=== PATIENT | male | born 1990 | race Caucasian/White ===

== ENCOUNTER 2016-09-21 23:02 | Emergency (ER) | payer OTHER ==
[2016-09-22] MEDS ORDERED: diphenhydrAMINE 50 MG/ML 1 ML VIAL IVP STA (00:16)
[2016-09-22] MEDS ORDERED: SODIUM CHLORIDE 0.9% 1,000 ML IV STA (00:16)
[2016-09-22] MEDS ORDERED: METOCLOPRAMIDE 5 MG/ML 2 ML VIAL IVP STA (00:16)
[2016-09-22] MEDS ORDERED: KETOROLAC 30 MG/ML 1 ML VIAL IVP STA (00:16)
--- NOTE | 2016-09-22 00:17 | ED ---
Headache HPI - General Chief Complaint: Headache Stated Complaint: migraine Time Seen by Provider: 09/21/16 23:59 Source: RN notes reviewed, old records reviewed Mode of arrival: ambulatory Limitations: no limitations - History of Present Illness Initial Comments: This is a 26-year-old male with chief complaint of a headache for the past day. Patient reports that he has had a history of migraines and this feels similar to previous ones. Patient denies any recent fever or chills. He reports that he's just feels generally fatigued over the past few days. She reports that he' s been sleeping more frequently and always weak and tired. Patient denies any chest pain or shortness of breath. Denies any cough, abdominal pain, nausea or vomiting. - Related Data Home Medications Medication Instructions Recorded Confirmed No Known Home Medications [No 09/21/16 09/21/16 Known Home Medications] Allergies Allergy/AdvReac Type Severity Reaction Status Date / Time lidocaine Allergy Rash/Hives Verified 09/21/16 23:26 Review of Systems ROS Statement: Those systems with pertinent positive or pertinent negative responses have been documented in the HPI. ROS Other: All systems not noted in ROS Statement are negative. Past Medical History Past Medical History: Liver Disease Additional Past Medical History / Comment(s): Fatty liver disease; Low vitamin D History of Any Multi-Drug Resistant Organisms: None Reported Past Surgical History: Tonsillectomy Past Psychological History: No Psychological Hx Reported Smoking Status: Never smoker Past Alcohol Use History: Occasional Past Drug Use History: None Reported General Exam - General Exam Comments Initial Comments: 26-year-old male. No acute distress. Limitations: no limitations General appearance: alert, in no apparent distress Head exam: Present: atraumatic, normocephalic, normal inspection Eye exam: Present: normal appearance, PERRL, EOMI. Absent: scleral icterus, conjunctival injection, periorbital swelling ENT exam: Present: normal exam, normal oropharynx, mucous membranes moist Neck exam: Present: normal inspection. Absent: tenderness, meningismus, lymphadenopathy Respiratory exam: Present: normal lung sounds bilaterally. Absent: respiratory distress, wheezes, rales, rhonchi, stridor Cardiovascular Exam: Present: regular rate, normal rhythm, normal heart sounds. Absent: systolic murmur, diastolic murmur, rubs, gallop, clicks GI/Abdominal exam: Present: soft, normal bowel sounds. Absent: distended, tenderness, guarding, rebound, rigid Extremities exam: Present: normal inspection, full ROM, normal capillary refill. Absent: tenderness, pedal edema, joint swelling, calf tenderness Back exam: Present: normal inspection Neurological exam: Present: alert, oriented X3, CN II-XII intact, normal gait Expanded Patient oriented to: Present: person, place, time Speech: Present: fluid speech Cranial nerves: EOM's Intact: Normal, Gag Reflex: Normal Cerebellar function: Finger to Nose: Normal Upper motor neuron: Pronator Drift: Normal Sensory exam: Upper Extremity Light Touch: Normal, Lower Extremity Light Touch: Normal Motor strength exam: RUE: 5, LUE: 5, RLE: 5, LLE: 5 Eye Response: (4) open spontaneously Motor Response: (6) obeys commands Verbal Response: (5) oriented [place] Total: 15 Psychiatric exam: Present: normal affect, normal mood Skin exam: Present: warm, dry, intact, normal color. Absent: rash Course Vital Signs 09/21/16 09/22/16 23:19 02:11 Temperature 99.6 F 97.2 F L Pulse Rate 108 H 85 Respiratory 18 16 Rate Blood Pressure 175/96 149/82 O2 Sat by Pulse 98 99 Oximetry Medical Decision Making - Medical Decision Making This is a 26-year-old male with chief complaint of a headache for the past day. Patient reports that he has had a history of migraines and this feels similar to previous ones. Patient denies any recent fever or chills. He reports that he's just feels generally fatigued over the past few days. She reports that he' s been sleeping more frequently and always weak and tired. Patient's mother was reviewed to show mild leukocytosis. Patient was given IV fluids, Reglan Benadryl and Toradol for pain. Patient ports his headache is now diminished and feels better. Patient is informed of these results. She has no physical exam findings. Discharge at this time and otherwise follow-up with a primary care provider. Patient is history plan will comply. Return parameters were discussed. - Lab Data Result diagrams: 09/22/16 01:12 09/22/16 01:12 Lab Results 09/22/16 09/22/16 09/22/16 Range/Units 01:12 01:12 01:12 WBC 15.4 H (3.8-10.6) k/uL RBC 5.34 (4.30-5.90) m/uL Hgb 15.2 (13.0-17.5) gm/dL Hct 44.7 (39.0-53.0) % MCV 83.9 (80.0-100.0) fL MCH 28.5 (25.0-35.0) pg MCHC 34.0 (31.0-37.0) g/dL RDW 13.2 (11.5-15.5) % Plt Count 432 (150-450) k/uL Neutrophils % 56 % Lymphocytes % 35 % Monocytes % 4 % Eosinophils % 3 % Basophils % 1 % Neutrophils # 8.6 H (1.3-7.7) k/uL Lymphocytes # 5.3 H (1.0-4.8) k/uL Monocytes # 0.6 (0-1.0) k/uL Eosinophils # 0.4 (0-0.7) k/uL Basophils # 0.2 (0-0.2) k/uL Manual Slide Review Performed Sodium 143 (137-145) mmol/L Potassium 4.1 (3.5-5.1) mmol/L Chloride 102 (98-107) mmol/L Carbon Dioxide 27 (22-30) mmol/L Anion Gap 14 mmol/L BUN 19 (9-20) mg/dL Creatinine 0.80 (0.66-1.25) mg/dL Est GFR (MDRD) Af Amer >60 (>60 ml/min/1.73 sqM) Est GFR (MDRD) Non-Af >60 (>60 ml/min/1.73 sqM) Glucose 103 H (74-99) mg/dL Calcium 10.0 (8.4-10.2) mg/dL Heterophile Antibody Negative (Negative) Disposition Clinical Impression: Migraine Disposition: HOME SELF-CARE Condition: Good Instructions: Acute Headache (ED) Additional Instructions: Take Motrin and Tylenol for further headache or pain. Return to the emergency department if any alarming signs or symptoms occur. Referrals: Remy Phoenix MD [Primary Care Provider] - 1-2 days Time of Disposition: 01:55
[2016-09-22 01:27] LABS: Basophils # (A) 0.2 k/uL (0-0.2); Basophils % (A) 1 %; CH 29.3; CHCM 35.1; Eosinophils # (A) 0.4 k/uL (0-0.7); Eosinophils % (A) 3 %; HCT 44.7 % (39.0-53.0); HDW 2.55; HGB 15.2 gm/dL (13.0-17.5); Luc # (Auto) 0.22; Luc % (Auto) 1; Lymphocytes # (A) 5.3 k/uL (1.0-4.8); Lymphocytes % (A) 35 %; MCH 28.5 pg (25.0-35.0); MCV 83.9 fL (80.0-100.0); Mean Platelet Volume 6.8; Monocytes # (A) 0.6 k/uL (0-1.0); Monocytes % (A) 4 %; Neutrophils # (A) 8.6 k/uL (1.3-7.7); Neutrophils % (A) 56 %; RBC 5.34 m/uL (4.30-5.90); RDW 13.2 % (11.5-15.5); WBC 15.4 k/uL (3.8-10.6); WBC (Perox) 13.78
[2016-09-22 01:40] LABS: Anion Gap 14 mmol/L; Blood Urea Nitrogen 19 mg/dL (9-20); Carbon Dioxide 27 mmol/L (22-30); Chloride 102 mmol/L (98-107); Glucose 103 mg/dL (74-99); Non-African American GFR(MDRD) >60 (>60 ml/min/1.73 sqM); Potassium 4.1 mmol/L (3.5-5.1); Sodium 143 mmol/L (137-145)
[2016-09-22 01:49] LABS: Manual Review Performed
[2016-09-22 02:12] VITALS: BP 149/82; PULSE 85; RESP 16; TEMP 97.2
== END 2016-09-22 02:12 | disposition home or self-care (01) ==
LOC: EC 23:02
DX: G43.909 Migraine, unspecified, not intractable, without status migrainosus (principal); Z88.4 Allergy status to anesthetic agent
CPT/HCPCS: 99284; 96374; 96375 ×2; 36415; 80048; 85025; 86308; J1200; J2765; J1885

== ENCOUNTER 2017-11-12 17:19 | Emergency (ER) | payer OTHER ==
[2017-11-12 17:30] VITALS: BP 140/86; PULSE 93; RESP 18; TEMP 98.4
[2017-11-12] MEDS ORDERED: MUPIROCIN 2% OINT 22 GM TUBE TOPICAL STA (18:36)
--- NOTE | 2017-11-12 18:44 | ED ---
Extremity Problem HPI - General Chief complaint: Extremity Problem,Nontraumatic Stated complaint: Bumps on hands Time Seen by Provider: 11/12/17 18:19 Source: patient, RN notes reviewed Mode of arrival: ambulatory Limitations: no limitations - History of Present Illness Initial comments: This is a 27-year-old male who presents to the emergency department with chief complaint of bumps and blisters on his left hand. Patient states that he has had itchy blisters on the pads of his fingers for a few weeks. He states that they pop and clear liquid comes out. He states that this morning when he woke up 3 of the blisters appeared infected. He states that he recently had the same lesions on the fingers on his right hand but these have gone away. Patient denies any fevers or chills, chest pain or shortness of breath, abdominal pain, nausea or vomiting. Patient does report a history of ALLERGIES and asthma. - Related Data Previous Rx's Medication Instructions Recorded Hydrocortisone Cream 1 applic TOPICAL BID #1 tube 11/12/17 [Hydrocortisone 2.5% Cream] Allergies Allergy/AdvReac Type Severity Reaction Status Date / Time lidocaine Allergy Rash/Hives Verified 11/12/17 17:30 Review of Systems ROS Statement: Those systems with pertinent positive or pertinent negative responses have been documented in the HPI. ROS Other: All systems not noted in ROS Statement are negative. Past Medical History Past Medical History: Liver Disease Additional Past Medical History / Comment(s): Fatty liver disease; Low vitamin D History of Any Multi-Drug Resistant Organisms: None Reported Past Surgical History: Tonsillectomy Past Psychological History: No Psychological Hx Reported Smoking Status: Never smoker Past Alcohol Use History: Occasional Past Drug Use History: None Reported General Exam - General Exam Comments Initial Comments: General: Awake and alert, well-developed; in no apparent distress. HEENT: Head atraumatic, normocephalic. Pupils are equal, round and reactive to light. Extraocular movements intact. Oropharynx moist without erythema or exudate. Neck: Supple. Normal ROM. Cardiovascular: Regular rate and rhythm. No murmurs, rubs or gallops. Chest symmetrical. Respiratory: Lungs clear to auscultation bilaterally. No wheezes, rales or rhonchi. Normal respiratory effort with no use of accessory muscles. Musculoskeletal: Normal ROM, no tenderness bilateral upper and lower extremities. Ambulating normally. Skin: Deep-set small blisters with clear liquid noted to the pads of fingers on the left hand. 3 of the blisters on the third and fourth digits have yellow crusting and mild surrounding erythema. Sensation is intact. Radial pulses are 2 + equal and palpable bilaterally. Neurological: Alert and oriented x3. CN II-XII grossly intact. Speech is fluent and answers are appropriate. No focal neuro deficits. Psychiatric: Normal mood and affect. No overt signs of depression or anxiety noted. Limitations: no limitations Course Vital Signs 11/12/17 17:27 Temperature 98.4 F Pulse Rate 93 Respiratory 18 Rate Blood Pressure 140/86 O2 Sat by Pulse 96 Oximetry Medical Decision Making - Medical Decision Making This is a 27-year-old male who presents to the emergency department with chief complaint of blisters and bumps on his left palm. Patient reports blisters are pruritic. On physical examination, patient does appear to have dyshidrotic eczema with 3 of the lesions having superficial infection. Patient will be started on a topical steroid as well as mupirocin ointment for the infected lesions. Vital signs are stable and patient is in no acute distress. He will be discharged home at this time. He is in agreement and voices understanding. All questions were answered. Disposition Clinical Impression: Dyshidrosis, Impetigo Disposition: HOME SELF-CARE Condition: Good Instructions: Impetigo (ED), Dyshidrotic Eczema (ED) Additional Instructions: Please apply mupirocin ointment 3 times per day to the infected lesions. Please apply topical corticosteroid to the blister-like lesions (dyshidrotic eczema) twice per day for no longer than 2 weeks. Please follow up with primary care provider within 1-2 days. Return to emergency department if symptoms should worsen or any concerns arise. Prescriptions: Hydrocortisone Cream [Hydrocortisone 2.5% Cream] 1 applic TOPICAL BID #1 tube Is patient prescribed a controlled substance at d/c from ED?: No Referrals: Remy Phoenix MD [Primary Care Provider] - 1-2 days Time of Disposition: 18:43
== END 2017-11-12 19:14 | disposition home or self-care (01) ==
LOC: EC 17:19
DX: L30.1 Dyshidrosis [pompholyx] (principal); L01.00 Impetigo, unspecified; Z88.4 Allergy status to anesthetic agent
CPT/HCPCS: 99283

== ENCOUNTER 2018-07-17 20:52 | Emergency (ER) | payer OTHER ==
[2018-07-17] MEDS ORDERED: diphenhydrAMINE 50 MG/ML 1 ML VIAL IVP STA (21:16)
[2018-07-17] MEDS ORDERED: methylPREDNISolone SOD SUCCI 125 MG/2 ML VIAL IV STA (21:16)
[2018-07-17 22:38] VITALS: BP 145/94; PULSE 97; RESP 20; TEMP 97.8
--- NOTE | 2018-07-17 22:42 | ED ---
Allergic Reaction HPI - General Chief complaint: Allergic Reaction Stated complaint: hives & swelling Time Seen by Provider: 07/17/18 21:15 Source: patient Mode of arrival: ambulatory Limitations: no limitations - History of Present Illness Initial Comments: 27-year-old male presenting for hives. Patient states that 3 hours prior to arrival he began experiencing rash of his bilateral upper extremities and face. He states he felt as though his nose was swollen. He denies any lip or tongue swelling. He denies difficulty swallowing. She states that initially he felt short of breath, he states he went to a convenience store and bought [id number] ALLERGY medication like Claritin. He states that this reduces swollen feeling in the face. He states that the rash seemed to start subsiding. When it did not completely subside he present to the emergency department for evaluation. Patient doesn't shortness of breath, difficulty breathing s wallowing or sensation of neck swelling. Patient has swelling of the lips nose under the tongue or of the tongue. Patient states the rash is on the upper extremity bilaterally. Patient denies any ingestion of nuts and shellfish. States he has been taking laxitives for constipation, denies any other medications. Denies ACEI use. Remaining ROS (-), patient denies any recent fever, chills, shortness of breath, chest pain, back pain, abdominal pain, nausea or vomiting, numbness or tingling, dysuria or hematuria, constipation or diarrhea, headaches or visual changes, or any other complaints. - Related Data Home Medications Medication Instructions Recorded Confirmed Docusate [Colace] 100 mg PO DAILY PRN 07/17/18 07/17/18 diphenhydrAMINE HCL [Benadryl] 25 mg PO ONCE PRN 07/17/18 07/17/18 Previous Rx's Medication Instructions Recorded predniSONE 20 mg PO BID 4 Days #8 tab 07/17/18 Allergies Allergy/AdvReac Type Severity Reaction Status Date / Time lidocaine Allergy Rash/Hives Verified 07/17/18 21:57 Review of Systems ROS Statement: Those systems with pertinent positive or pertinent negative responses have been documented in the HPI. ROS Other: All systems not noted in ROS Statement are negative. Past Medical History Past Medical History: Liver Disease Additional Past Medical History / Comment(s): Fatty liver disease; Low vitamin D History of Any Multi-Drug Resistant Organisms: None Reported Past Surgical History: Tonsillectomy Past Psychological History: No Psychological Hx Reported Smoking Status: Never smoker Past Alcohol Use History: Occasional Past Drug Use History: Marijuana General Exam - General Exam Comments Initial Comments: General: The patient is awake and alert, in no distress, and does not appear acutely ill. Eye: +3 mm pupils are equal, round and reactive to light, extra-ocular movements are intact. No nystagmus. There is normal conjunctiva bilaterally. No signs of icterus. Ears, nose, mouth and throat: There are moist mucous membranes and no oral lesions. No swelling of the lips, tongue, under the tongueor neck. Neck: The neck is supple, there is no tenderness or JVD. Cardiovascular: There is a regular rate and rhythm. No murmur, rub or gallop is appreciated. Respiratory: Lungs are clear to auscultation, respirations are non-labored, breath sounds are equal. No wheezes, stridor, rales, or rhonchi. Gastrointestinal: Soft, non-distended, non-tender abdomen without masses or organomegaly noted. There is no rebound or guarding present. No CVA tenderness. Bowel sounds are unremarkable. Musculoskeletal: Normal ROM, no tenderness. Strength 5/5. Sensation intact. Pulses equal bilaterally 2+. Neurological: A&O x 3. CN II-XII intact, There are no obvious motor or sensory deficits. Coordination appears grossly intact. Speech is normal. Skin: Skin is warm and dry and no rashes> Wheels raised, confluent erythema from hands to elbows of the UE b/l. Psychiatric: Cooperative, appropriate mood & affect, normal judgment. Limitations: no limitations Course Vital Signs 07/17/18 07/17/18 20:56 22:30 Temperature 98.4 F 97.8 F Pulse Rate 124 H 97 Respiratory 18 20 Rate Blood Pressure 137/92 145/94 O2 Sat by Pulse 94 L 97 Oximetry Medical Decision Making - Medical Decision Making 27 yo presents today for chief complaint allergic reaction. The aortic area on examination. Patient states resolving. Patient denies any swelling of the lips tongue face currently. Denies difficulty breathing, abdominal pain diarrhea. Patient appears well patient was given the steroid as well as Benadryl. This completely resolved symptoms. Patient requesting discharge. At the site the patient is stable for discharge to anaphylaxis or dumping syndrome. Most likely ALLERGIC reaction recommended ALLERGY testing and discontinuation of laxatives. Pt is to follow-up with primary care provider in the next 2-3 days. She is to take steroids for the next 4 days. Return parameters were discussed at length the patient who verbalized understanding. Patient discharged appearing well after discussing the case attending provider Dr. Gamble Disposition Clinical Impression: Allergic reaction Disposition: HOME SELF-CARE Condition: Good Instructions (If sedation given, give patient instructions): Urticaria (ED), Allergy Testing (ED) Additional Instructions: Please use medication as discussed. Please follow-up with family doctor in the next 2 days. Please return to emergency room if the symptoms increase or worsen or for any other concerns, worsening rash, swelling of lips tongue base, difficulty breathing. Prescriptions: predniSONE 20 mg PO BID 4 Days #8 tab Is patient prescribed a controlled substance at d/c from ED?: No Referrals: Remy Phoenix MD [Primary Care Provider] - 1-2 days Time of Disposition: 22:42
== END 2018-07-17 23:07 | disposition home or self-care (01) ==
LOC: EC 20:52
DX: T78.40XA Allergy, unspecified, initial encounter (principal); K59.00 Constipation, unspecified; Z88.4 Allergy status to anesthetic agent; Z79.899 Other long term (current) drug therapy
CPT/HCPCS: 99284; 96374; 96375; J1200; J2930

== ENCOUNTER 2020-06-20 16:21 | Emergency (ER) | payer OTHER ==
[2020-06-20 17:38] VITALS: BP 179/92; PULSE 101; RESP 18; TEMP 98.6
--- NOTE | 2020-06-20 17:39 | ED ---
Medical Decision Making - Medical Decision Making Rafal screening exam: 29-year-old male presents emergency department for left ankle pain. Patient states that her last couple days she's been having worsening left ankle pain. Denies any trauma or inciting event that causes pain. Back in December he dropped a bag of concrete mix on his left foot. He states since then he's been having on-and-off pain of his left ankle. Patient has a fever, chills or night sweats. Exam shows mild swelling over the left lateral midfoot. He has no pain at the base of the fifth metatarsal. No skin changes. X-ray ordered. Disposition Clinical Impression: Ankle pain, left Disposition: HOME SELF-CARE Condition: Stable Instructions (If sedation given, give patient instructions): Ankle Sprain (ED) Additional Instructions: Please return to the Emergency Department if symptoms worsen or any other concerns. Follow-up primary care as scheduled. Referral to orthopedics for potential soft tissue/tendon/ligament damage. Wear Aircast, avoid shortness activity, use as tolerated. Take [id number] pain medications as needed for symptomatically control. Is patient prescribed a controlled substance at d/c from ED?: No Referrals: Remy Phoenix MD [Primary Care Provider] - 1-2 days
--- NOTE | 2020-06-20 17:57 | XR ---
EXAMINATION TYPE: XR ankle complete LT DATE OF EXAM: 06/20/2020 COMPARISON: NONE HISTORY: Pain TECHNIQUE: 3 views FINDINGS: Ankle mortise is anatomic. I see no fracture nor dislocation. Joint spaces are fairly danisha l. IMPRESSION: [place] left ankle exam.
--- NOTE | 2020-06-20 18:40 | ED ---
Lower Extremity Injury HPI - General Chief Complaint: Extremity Injury, Lower Stated Complaint: L foot injury Source: patient, RN notes reviewed Mode of arrival: ambulatory Limitations: no limitations - History of Present Illness Initial Comments: Patient is a 29-year-old male that presents to emergency department complaining of left ankle pain. She noted that December he troponin I, bag of cement on His ankle but did not follow-up with orthopedics. He notes that since then his left ankle is been painful and has been difficult to walk. He denies any weakness numbness tingling decreased sensation in that left foot or ankle. He notes that he does have a follow-up appointment with his primary care in . He was wondering if there is anything he take or do to help with the pain. He denied any chest pain first breath headache nausea vomiting diarrhea comes patient 50 chills. - Related Data Home Medications Medication Instructions Recorded Confirmed Docusate [Colace] 100 mg PO DAILY PRN 07/17/18 07/17/18 diphenhydrAMINE HCL [Benadryl] 25 mg PO ONCE PRN 07/17/18 07/17/18 Previous Rx's Medication Instructions Recorded predniSONE [Deltasone] 20 mg PO BID 4 Days #8 tab 07/17/18 Allergies Allergy/AdvReac Type Severity Reaction Status Date / Time lidocaine Allergy Rash/Hives Verified 06/20/20 17:38 Review of Systems ROS Statement: Those systems with pertinent positive or pertinent negative responses have been documented in the HPI. ROS Other: All systems not noted in ROS Statement are negative. Past Medical History Past Medical History: Liver Disease Additional Past Medical History / Comment(s): Fatty liver disease; Low vitamin D History of Any Multi-Drug Resistant Organisms: None Reported Past Surgical History: Tonsillectomy Past Psychological History: No Psychological Hx Reported Smoking Status: Current every day smoker Past Alcohol Use History: Occasional Past Drug Use History: Marijuana General Exam Limitations: no limitations General appearance: alert, in no apparent distress Head exam: Present: atraumatic, normocephalic, normal inspection Eye exam: Present: normal appearance, PERRL, EOMI. Absent: scleral icterus, conjunctival injection, periorbital swelling Neck exam: Present: normal inspection. Absent: tenderness, meningismus, lymphadenopathy Respiratory exam: Present: normal lung sounds bilaterally. Absent: respiratory distress, wheezes, rales, rhonchi, stridor Cardiovascular Exam: Present: regular rate, normal rhythm, normal heart sounds. Absent: systolic murmur, diastolic murmur, rubs, gallop, clicks GI/Abdominal exam: Present: soft, normal bowel sounds. Absent: distended, tenderness, guarding, rebound, rigid Extremities exam: Present: normal inspection, normal capillary refill. Absent: full ROM (Left ankle decreased due to pain.), tenderness, pedal edema, joint swelling, calf tenderness Neurological exam: Present: alert, oriented X3, CN II-XII intact Psychiatric exam: Present: normal affect, normal mood Skin exam: Present: warm, dry, intact, normal color. Absent: rash Course Vital Signs 06/20/20 17:34 Temperature 98.6 F Pulse Rate 101 H Respiratory 18 Rate Blood Pressure 179/92 O2 Sat by Pulse 98 Oximetry Medical Decision Making - Medical Decision Making 29-year-old male complaining of left ankle pain. Left ankle x-ray ordered. Left ankle x-ray is negative for any acute fracture dislocation. Case discussed with Dr. Gutierrez, patient to discharge home. - Radiology Data Radiology results: report reviewed, image reviewed Left ankle x-ray: No acute fracture-dislocation. Disposition Clinical Impression: Ankle pain, left Disposition: HOME SELF-CARE Condition: Stable Instructions (If sedation given, give patient instructions): Ankle Sprain (ED) Additional Instructions: Please return to the Emergency Department if symptoms worsen or any other concerns. Follow-up primary care as scheduled. Referral to orthopedics for potential soft tissue/tendon/ligament damage. Wear Aircast, avoid shortness activity, use as tolerated. Take [id number] pain medications as needed for symptomatically control. Is patient prescribed a controlled substance at d/c from ED?: No Referrals: Remy Phoenix MD [Primary Care Provider] - 1-2 days Time of Disposition: 18:39
== END 2020-06-20 18:54 | disposition home or self-care (01) ==
LOC: EC 16:21
DX: M25.572 Pain in left ankle and joints of left foot (principal); F17.200 Nicotine dependence, unspecified, uncomplicated; F12.90 Cannabis use, unspecified, uncomplicated
CPT/HCPCS: 99283

== ENCOUNTER 2020-12-27 07:51 | Emergency (ER) | payer OTHER ==
[2020-12-27 08:21] VITALS: TEMP 98.4
[2020-12-27] MEDS ORDERED: IPRATROPIUM-ALBUTEROL 3 ML NEB INHALATION STA (08:49)
[2020-12-27] MEDS ORDERED: diphenhydrAMINE 50 MG/ML 1 ML VIAL IM STA (08:49)
[2020-12-27] MEDS ORDERED: FAMOTIDINE 20 MG TAB PO STA (08:49)
[2020-12-27] MEDS ORDERED: methylPREDNISolone SOD SUCCI 125 MG/2 ML VIAL IM ONE (08:49)
--- NOTE | 2020-12-27 08:51 | ED ---
General Adult HPI - General Chief complaint: Allergic Reaction Stated complaint: allergic reaction Time Seen by Provider: 12/27/20 08:20 Source: patient, family, RN notes reviewed, old records reviewed Mode of arrival: ambulatory Limitations: no limitations - History of Present Illness Initial comments: This is a 30-year-old male presents emergency Department complaining of ALLERGIC reaction. Patient states he woke up with his arms read his face swollen and very itchy. Patient states he took some [id number] cold medicine because he's been expressing a little bit of cough and a little bit of wheezing lately. Patient denies any other change in his diet or soaps. Patient denies any shortness of breath currently. Patient denies any chest pain. Patient denies any throat swelling. Patient states this all began at 6 AM when he woke up. Patient denies any fevers. - Related Data Home Medications Medication Instructions Recorded Confirmed Docusate [Colace] 100 mg PO DAILY PRN 07/17/18 07/17/18 diphenhydrAMINE HCL [Benadryl] 25 mg PO ONCE PRN 07/17/18 07/17/18 Previous Rx's Medication Instructions Recorded predniSONE [Deltasone] 20 mg PO BID 4 Days #8 tab 07/17/18 Albuterol Inhaler [Ventolin Hfa 2 puff INHALATION RT-QID #18 gm 12/27/20 Inhaler] predniSONE [Deltasone] 40 mg PO DAILY #8 tab 12/27/20 Allergies Allergy/AdvReac Type Severity Reaction Status Date / Time lidocaine Allergy Rash/Hives Verified 12/27/20 08:21 Review of Systems ROS Statement: Those systems with pertinent positive or pertinent negative responses have been documented in the HPI. ROS Other: All systems not noted in ROS Statement are negative. Past Medical History Past Medical History: Liver Disease Additional Past Medical History / Comment(s): Fatty liver disease; Low vitamin D History of Any Multi-Drug Resistant Organisms: None Reported Past Surgical History: Tonsillectomy Past Psychological History: No Psychological Hx Reported Smoking Status: Current every day smoker Past Alcohol Use History: Occasional Past Drug Use History: Marijuana General Exam - General Exam Comments Initial Comments: GENERAL: Patient is well-developed and well-nourished. Patient is nontoxic and well- hydrated and is in mild distress. ENT: Neck is soft and supple. No significant lymphadenopathy is noted. Oropharynx is clear. Moist mucous membranes. Neck has full range of motion without eliciting any pain. EYES: The sclera were anicteric and conjunctiva were pink and moist. Extraocular m ovements were intact and pupils were equal round and reactive to light. Eyelids were unremarkable. PULMONARY: Patient has slight extremities CARDIOVASCULAR: Patient is tachycardic at about 105 bpm SKIN: Patient's face is erythematous and don't notice any swelling but the patient himself states it is a little swollen. Patient's arms are both erythematous. There are no hives noted. NEUROLOGIC: Patient is alert and oriented x3. Cranial nerves II through XII are grossly intact. Motor and sensory are also intact. Normal speech, volume and content. Symmetrical smile. MUSCULOSKELETAL: Normal extremities with adequate strength and full range of motion. LYMPHATICS: No significant lymphadenopathy is noted PSYCHIATRIC: Normal psychiatric evaluation. Limitations: no limitations Course Vital Signs 12/27/20 12/27/20 12/27/20 08:16 09:13 09:20 Temperature 98.4 F Pulse Rate 114 H 84 86 Respiratory 18 Rate Blood Pressure 132/85 O2 Sat by Pulse 96 Oximetry Medical Decision Making - Medical Decision Making Patient received a breathing treatment and I went back and listened to be had no more wheezing. Patient also received Benadryl Pepcid and Solu-Medrol and his erythema went away and his itching stopped. Disposition Clinical Impression: Allergic reaction Disposition: HOME SELF-CARE Condition: Good Instructions (If sedation given, give patient instructions): General Allergic Reaction (ED) Prescriptions: predniSONE [Deltasone] 40 mg PO DAILY #8 tab Albuterol Inhaler [Ventolin Hfa Inhaler] 2 puff INHALATION RT-QID #18 gm Is patient prescribed a controlled substance at d/c from ED?: No Referrals: Remy Phoenix MD [Primary Care Provider] - 1-2 days Time of Disposition: 09:58
[2020-12-27 10:19] VITALS: BP 132/60; PULSE 87; RESP 20
== END 2020-12-27 10:19 | disposition home or self-care (01) ==
LOC: EC 07:51
DX: T78.40XA Allergy, unspecified, initial encounter (principal); F17.200 Nicotine dependence, unspecified, uncomplicated; F12.90 Cannabis use, unspecified, uncomplicated
CPT/HCPCS: 94640; 99284; 96372 ×2; J1200; J2930